=== PATIENT | male | born 1960 | race Two or more races ===

== ENCOUNTER 2022-08-03 22:50 | Emergency (ER) | payer SELFPAY ==
[~2022-08-03] VITALS: Ht 172.7 cm; Wt 91.0 kg
[2022-08-03 23:20] LABS: Basophils # (auto) 0 10 ^3/uL (0-0.2); Basophils % (auto) 0.4 % (0.0-2.0); Eosinophils # (auto) 0.3 10 ^3/uL (0-0.8); Eosinophils % (auto) 5.6 % (0.0-7.0); Hematocrit 37.2 % (41.0-53.0); Lymphocytes # (auto) 1.9 10 ^3/uL (0.4-5.4); Lymphocytes % (auto) 35.5 % (10.0-50.0); Mean Corpuscular Hemoglobin 32.1 pg (28.0-32.0); Mean Corpuscular Volume 91.8 fL (80.0-100.0); Monocytes # (auto) 0.5 10 ^3/uL (0-1.3); Monocytes % (auto) 8.9 % (0.0-12.0); Neutrophils # (auto) 2.6 10 ^3/uL (1.6-8.6); Neutrophils % (auto) 49.6 % (37.0-80.0); Nucleated Red Blood Cells % 0.1 %; Red Blood Cells 4.06 10^6/uL (4.5-5.90); Red Cell Distribution Width 12.7 % (11.8-14.3); White Blood Cell 5.3 10^3/uL (4.4-10.8)
[2022-08-03 23:35] LABS: INR 0.94 (0.9-1.15); Partial Thromboplastin Time 28.7 sec (24.6-33.4)
[2022-08-03 23:37] LABS: Albumin 3.7 g/dL (3.4-5.0); BUN/Creatinine Ratio 6.4 (10.0-20.0); Calcium 8.8 mg/dL (8.5-10.1); Magnesium 1.2 mg/dL (1.6-2.6); Potassium 3.1 mmol/L (3.5-5.1)
[2022-08-03 23:46] LABS: Bilirubin, Total 0.2 mg/dL (0.2-1.0); Total Protein 7.8 g/dL (6.4-8.2)
[2022-08-04] MEDS ORDERED: POTASSIUM CHL 20 Meq TABLET PO ONE (00:15)
[2022-08-04 05:00] VITALS: BP 139/77
== END 2022-08-04 05:22 | disposition home or self-care (01) ==
LOC: EDBD 22:50 → ER 22:53
DX: R07.2 Precordial pain (principal); E87.6 Hypokalemia; E87.1 Hypo-osmolality and hyponatremia
CPT/HCPCS: 36415; 71045; 80053; 80320; 83735; 83880; 84484; 85025; 85610; 85730; 93005